=== PATIENT | female | born 1990 ===

== ENCOUNTER 2024-08-27 17:38 | Emergency (ER) | payer MEDICAID ==
[~2024-08-27] VITALS: Ht 167.6 cm; Wt 67.2 kg
[2024-08-27 17:40] VITALS: BP 125/85; PULSE 78; TEMP 98.1; O2SAT 100
[2024-08-27] MEDS ORDERED: AMOX-117 PO (18:55)
[2024-08-27] MEDS ORDERED: NAPR-1166 PO (18:55)
[2024-08-27] MEDS ORDERED: HYDR-3965 PO (18:55)
--- NOTE | 2024-08-27 18:55 | Physician Documentation ---
HPI ~ General Chief Complaint: Tooth Problem Stated Complaint: TOOTH PAIN Time Seen by MD: 18:40 History of Present Illness HPI Comment This is a 34-year-old female who comes in for pain in the left upper jaw that has been present for a week and is getting worse patient has has a known history of caries. Worse with eating and drinking. The particular palliating factors. [id number] medications does not helping. She does have dental appointment in September. Denies any difficulty opening her mouth, drooling, voice changes. No concern for tobacco, alcohol or illicit substances use Medication Reconciliation Allergies: Coded Allergies: No Known Allergies (Unverified , 08/27/24) Review of Systems ROS 10 point review of systems was performed and unless noted above in HPI is negative for acute process/complaint. Physical Exam Vital Signs: Temperature: 98.1, Source: Oral, Heart Rate: 78, Respiratory Rate: 16, BP: 125/85, Pulse Oximetry: 100, Weight: 67.200 Oxygen Flow Rate: 0 Physical Exam Physical examination: GENERAL: Awake, alert, oriented, GCS 15, no apparent distress, non-toxic appearing, answers questions, follows commands appropriately. Examined in fast track HEENT: Atraumatic, normocephalic, pupils equal, extraocular muscles intact Active gross movements, sclerae anicteric, mucus membranes moist, no stridor. NECK: Midline, no JVD CARDIOVASCULAR: Good skin perfusion without evidence of pallor, mottling. PULMONARY: Nonlabored, symmetric chest rise, no audible wheezing, no accessory muscle use, no respiratory distress, speaking in full sentences. GASTROINTESTINAL: Not distended. NEUROLOGIC: Lucid with normal mental status. Normal facial symmetry. Moves all extremities symmetrically and with purpose. No truncal ataxia. Speech is fluid without evidence of dysarthria or aphasia, no focal deficits appreciated. EXTREMITIES: Acute deformities Skin: warm, dry PSYCHIATRIC: Normal affect, normal insight, normal concentration. Focused exam: [] There is poor dentition and caries noted in the 2nd molar on the left upper jaw noted. This appears to be the source of pain. No obvious abscess or fluctuance. There is no trismus, no floor of the mouth elevation, no drooling, no hot potato voice, no brawny submandibular erythema. Airway posteriorly patent. Progress Results/Orders Results/Orders Completed Orders - MERRICK PUENTES DO Amox Tr/Potassium Clavulanate (Augmentin (08/27/24 18:45) Hydrocodone/Apap 5/325mg Tab (Moriarty 5/32 (08/27/24 18:45) Vital Signs 08/27/24 17:40 Temp 98.1 Pulse 78 Resp 16 B/P (MAP) 125/85 Pulse Ox 100 O2 Flow Rate 0 Medical Decision Making Findings Facility Status: ED Holds, RME process The plan was discussed with the patient, who demonstrates clear understanding of the plan and is in agreement with the plan unless otherwise noted in the chart. All questions have been answered, all concerns were addressed unless otherwise documented. I was available throughout their ED stay for frequent reassessment and questions. Differential Diagnoses (considered and possible or likely): [Dental pain, dental caries, dental infection, dental abscess, less likely osteomyelitis of the jaw, clinically not consistent with] ??Differential Diagnoses (considered and unlikely, not requiring evaluation currently): [Not consistent with Kyle's angina. Clinically there is no evidence of peritonsillar abscess or retropharyngeal abscess] MDM Data Please see [facility] for the following: Independent Historians and external Records Review. Historian: [Patient] Independent Historians: ?[Patient's partner] Medication Management: [Reviewed medication list] Social History and determinants: [Reviewed] Please see the body of the note for the following: Any independent interpretations of ECG, imaging studies. All vitals signs/haemodynamics, ordered tests were independently reviewed and interpreted by myself. Nursing triage complaint and vitals reviewed, additional nursing notes were reviewed as available and I agree unless otherwise noted or documented in contradiction in the chart Vital Signs: Independently reviewed Labs: Independently interpreted Imaging: Independently interpreted Old Medical Records: Independently reviewed, see [facility] for relevant summary and information Pulse Oximetry: [95%] interpreted as [normal on room air] by me Additionally notably showing: [Hemodynamically stable] Tests considered but not ordered include: [Hematologic workup and imaging has been considered but does not appear to be necessary given clinical nature of diagnosis] Social Determinants of Health Impact: Patient was evaluated in [facility] [place] to healthcare due to below par ratio of patient to medical providers. [] Comorbid Conditions Impacting Present Evaluation and Care/Treatment: [Known poor dentition] Management Discussions with other Healthcare Providers: [None] Treatment and Disposition Medication Management (Given or considered): [Augmentin and pain management]. See EMR for details Consideration for Hospitalization/Escalation/Deescalation of Care: Admission for observation has been considered, [however the patient is able to tolerate p.o., their symptoms are controlled, they are able to rely on oral medications, and their chief complaint/diagnosis can be managed on outpatient basis.] ?ED Course:?[No clinical deterioration. Protects her airway.] ?Shared decision making:?[Patient is hemodynamically stable for discharge home with follow with their primary care provider. [ ] Specific and cautious return precautions provided and discussed with full understanding. Any incidental findings were also discussed and follow up recommendations given. [] All questi ons answered. Patient/family were able to verbalize back return precautions. Patient/family agree to plan. Copies of imaging and laboratory studies were provided.] Code status:?FULL Please see the full Electronic Medical Record for full details of nursing documentation, medications list, other records of complete past medical history and conditions, vital signs, laboratory studies, and any radiologic study interpretations by radiologists. Portions of this note were completed using [employer] dictation software and as a result there may exist minor errors in spelling. I have reviewed elements of past family and social history and agree as included in note. Departure Disposition: HOME / SELF CARE / HOMELESS Impression: Primary Impression: Toothache Additional Impressions: Dental caries Dental abscess Condition: Improved Discharge Instructions: Dental Pain Referrals: NO PRIMARY CARE PROVIDER (PCP) Prescriptions Hydrocodone Bit/Acetaminophen 5/325 MG ([place]arty 5/325 MG) 5 Mg/325 Mg Tablet 1 TAB PO Q6H PRN for pain, #14 TAB Prov: MERRICK PUENTES DO 08/27/24 Naproxen (Naproxen) 375 Mg Tablet 1 TAB PO Q12H for pain for 30 Days, #60 TAB 0 Refills with food Prov: MERRICK PUENTES DO 08/27/24 Amox Tr/Potassium Clavulanate (Augmentin 875-125 Tablet) 1 Each Tablet 1 TAB PO Q12H for 10 Days, #20 TAB Prov: MERRICK PUENTES DO 08/27/24 Education Educated: Patient, Family Educated regarding: diagnosis, treatment, prognosis Signature Scribe Signature: No scribe Attestation: This note accurately reflects clinical decisions, work performed by myself, Merrick Puentes, MERRICK BENZ DO August 27, 2024 18:55
[2024-08-27 19:18] VITALS: RESP 17
[2024-08-27] MEDS: HYDROcodone/acetaminophen 5mg/325mg tablet PO ONE (19:18)
[2024-08-27] MEDS: amox tr/potassium clavulanate 875/125mg TAB PO ONE (19:19)
== END 2024-08-27 19:24 | disposition home or self-care (01) ==
LOC: ER 17:39
DX: K04.7 Periapical abscess without sinus (principal); K02.9 Dental caries, unspecified
CPT/HCPCS: 99283